=== PATIENT | female | born 1985 | race Caucasian/White ===

== ENCOUNTER 2016-12-01 21:16 | Emergency (ER) | payer BC ==
[~2016-12-01] VITALS: Ht 167.6 cm; Wt 65.9 kg
[~2016-12-01 21:16] MED LIST: BIRTH CONTROL PILL
[2016-12-01 21:19] VITALS: TEMP 98.1
[2016-12-01] MEDS ORDERED: PRILOTC (21:23)
[2016-12-01] MEDS ORDERED: AMOXICILLIN 50500 MG PO (21:23)
[2016-12-01] MEDS ORDERED: BIAXIN 500MG T500 MG PO (21:23)
[2016-12-01] MEDS ORDERED: ZYRTEC5 MG PO (21:23)
[2016-12-01] MEDS ORDERED: YAZ 28 3 MG-0.01 TAB PO (21:23)
[2016-12-01 22:00] LABS: PH 6 (5-8); SQUAMOUS EPITHELIAL 0-2 /hpf; URINE APPEARANCE Clear; URINE BACTERIA None Seen /hpf; URINE BILIRUBIN Negative (NEGATIVE); URINE BLOOD Negative (NEGATIVE); URINE COLOR Straw; URINE GLUCOSE Negative (NEGATIVE); URINE KETONE Negative (NEGATIVE); URINE RBC 0-2 /hpf; URINE UROBILINOGEN Negative (NEGATIVE); URINE WBC 0-2 /hpf
[2016-12-01 22:39] LABS: BASO % 0.5 % (0.0-2.0); EOS # 0.1 (0.0-0.7); EOS % 1.2 % (0-4.0); GRAN # 4.2 (1.4-6.5); GRAN % 63.3 % (42.2-75.2); HEMOGLOBIN 12.7 g/dl (12.5-16.0); LYMPH # 1.5 (1.2-3.4); MEAN CELL VOLUME 91 fl (80.0-100.0); MEAN CORPUSCULAR HEMOGLOBIN 32 pg (27.0-31.0); MEAN CORPUSCULAR HGB CONC 35 g/dl (33.0-37.0); MEAN PLATELET VOLUME 11.1 fl (7.4-10.4); MONO # 0.8 (0.1-0.6); MONO % 11.7 % (1.7-9.3); PLATELET COUNT 171 K/mm3 (130-400); RED BLOOD COUNT 3.98 M/mm3 (4.10-5.30); REDCELL DISTRIBUTION WIDTH-CV 11.6 % (11.5-14.5); WHITE BLOOD COUNT 6.6 K/mm3 (4.8-10.8)
[2016-12-01 22:40] LABS: HEMATOCRIT 36.3 % (37.0-47.0)
[2016-12-01 22:57] LABS: ALBUMIN 3.5 gm/dL (3.5-5.0); BILIRUBIN,TOTAL 0.6 mg/dL (0.0-1.0); CALCIUM 8.6 mg/dL (8.4-10.2); CREATININE, serum 0.93 mg/dL (0.52-1.25); POTASSIUM 3.5 mmol/L (3.4-5.0)
[2016-12-01] MEDS ORDERED: FLAGYL500 MG PO (23:33)
[2016-12-01 23:50] VITALS: BP 97/62; PULSE 90
== END 2016-12-01 23:50 | disposition home or self-care (01) ==
LOC: COL.ER 21:16
PROVIDERS: Family Medicine
DX: K56.7 Ileus, unspecified (principal); R19.7 Diarrhea, unspecified; B96.81 Helicobacter pylori [H. pylori] as the cause of diseases classified elsewhere
CPT/HCPCS: J2270; J2405; J7030; Q9967

== ENCOUNTER 2017-05-10 20:06 | Emergency (ER) | payer BC ==
[~2017-05-10] VITALS: Ht 167.6 cm; Wt 63.6 kg
[~2017-05-10 20:06] MED LIST changes: +AMOXICILLIN 50500 MG PO; +BIAXIN 500MG T500 MG PO; +FLAGYL500 MG PO; +PRILOTC; +YAZ 28 3 MG-0.01 TAB PO; +ZYRTEC5 MG PO
[2017-05-10] MEDS ORDERED: YAZ 28 3 MG-0.01 TAB PO (20:22)
[2017-05-10 20:36] LABS: BASO # 0.1 (0.0-0.2); BASO % 1.2 % (0.0-2.0); EOS # 0.2 (0.0-0.7); EOS % 1.7 % (0-4.0); GRAN # 4.6 (1.4-6.5); GRAN % 53.4 % (42.2-75.2); HEMATOCRIT 40.1 % (37.0-47.0); HEMOGLOBIN 13.7 g/dl (12.5-16.0); LYMPH # 3.1 (1.2-3.4); LYMPH % 35.9 % (20.0-51.0); MEAN CELL VOLUME 94 fl (80.0-100.0); MEAN CORPUSCULAR HEMOGLOBIN 32 pg (27.0-31.0); MEAN CORPUSCULAR HGB CONC 34 g/dl (33.0-37.0); MEAN PLATELET VOLUME 11.4 fl (7.4-10.4); MONO # 0.6 (0.1-0.6); MONO % 7.3 % (1.7-9.3); PLATELET COUNT 187 K/mm3 (130-400); RED BLOOD COUNT 4.29 M/mm3 (4.10-5.30); REDCELL DISTRIBUTION WIDTH-CV 11.5 % (11.5-14.5); WHITE BLOOD COUNT 8.6 K/mm3 (4.8-10.8)
[2017-05-10 20:46] LABS: ADJUSTED CALCIUM 9.1 mg/dL (8.4-10.2); ALBUMIN 4.3 gm/dL (3.5-5.0); BILIRUBIN,TOTAL 0.7 mg/dL (0.0-1.0); CALCIUM 9.3 mg/dL (8.4-10.2); CREATININE, serum 1.15 mg/dL (0.52-1.25); POTASSIUM 3.7 mmol/L (3.4-5.0); TOTAL PROTEIN 7.7 gm/dL (6.4-8.2)
[2017-05-10] MEDS ORDERED: PERCOCET 325 MG1 TA2 PO (23:25)
[2017-05-10 23:58] VITALS: BP 130/76; PULSE 100; TEMP 97.5
== END 2017-05-10 23:59 | disposition home or self-care (01) ==
LOC: COL.ER
PROVIDERS: Emergency Medicine
DX: S06.0X9A Concussion with loss of consciousness of unspecified duration, initial encounter (principal); S93.401A Sprain of unspecified ligament of right ankle, initial encounter; S50.812A Abrasion of left forearm, initial encounter; S80.811A Abrasion, right lower leg, initial encounter; S80.812A Abrasion, left lower leg, initial encounter; Z23 Encounter for immunization; V23.5XXA Motorcycle passenger injured in collision with car, pick-up truck or van in traffic accident, initial encounter
CPT/HCPCS: J2405; J7030

== ENCOUNTER → 2017-08-09 | Outpatient (CLI) | payer BC ==
[~2017-08-09] MED LIST changes: +PERCOCET 325 MG1 TA2 PO
== END ==
LOC: COL.CARD 14:58
DX: R55 Syncope and collapse (principal)